=== PATIENT | male | born 1985 | race American Indian/Alaskan Native ===

== ENCOUNTER 2017-11-18 06:25 | Emergency (ER) | payer SELFPAY ==
[2017-11-18 06:37] VITALS: BP 121/76
[2017-11-18] MEDS ORDERED: NORCO 7.5/325 PO ONE (07:55)
--- NOTE | 2017-11-18 09:43 | Emergency Department Report ---
[facility] Chief Complaint: Upper Respiratory Infection Stated Complaint: EYE PAIN Time Seen by Provider: 11/18/17 07:17 Duration: 2 Days Side: Bilateral Symptoms: Yes Eye Itching (both eyes that started off on the left.), Yes Eye Redness (both eyes), Yes Purulent Drainage (woke up this morning with his eyes shut with crusting.), Yes H/O Allergic Rhinitis, No Eye Pain (0/10), No Mucous Drainage, No Blurred Vision, No Preceding URI (he said he has allergies but he does not have any new congestion or runny nose), No Contact Lens Use, No Trauma , No Fever, No Headache Other History: Patient reports that he has redness and itching to both eyes that started off in his left and now is that his right eye. Pain is 0-10. Tetanus shot is up-to-date. Denies any eye pain. He states that he thinks he' s been exposed to pinkeye from work. Denies any blurred vision or decrease in vision. Denies any runny nose or coughing. Denies any nasal congestion or sore throat. Denies any change in vision or loss of vision. He says been taking [id number] eyedrops without any relief. ED Review of Systems ROS: Stated complaint: EYE PAIN Other details as noted in HPI Comment: All other systems reviewed and negative Constitutional: denies: chills, fever Eyes: eye discharge. denies: eye pain, vision change ENT: denies: ear pain, throat pain, dental pain, hearing loss, congestion Respiratory: denies: cough, shortness of breath, wheezing Cardiovascular: denies: chest pain, palpitations Gastrointestinal: denies: abdominal pain, nausea, diarrhea Skin: denies: rash, lesions Neurological: denies: headache, weakness, paresthesias ED Past Medical Hx - Past Medical History Previous Medical History?: No - Surgical History Past Surgical History?: No - Family History Family history: no significant - Social History Smoking Status: Current Every Day Smoker Substance Use Type: None Other Social History: Lives with family - Medications Home Medications: Home Medications Medication Instructions Recorded Confirmed Last Taken Type HYDROcodone/APAP 7.5-325 [[place] 1 each PO Q8HR PRN #15 tablet 08/17/13 Unknown Rx 7.5-325 mg TAB] Penicillin Vk [Veetids TAB] 250 mg PO QID 10 Days tablet 08/17/13 Unknown Rx Gentamicin 0.3% Ophth Soln 2 drops OU Q8H 7 Days #1 bottle 11/18/17 Unknown Rx Ketotifen Fumarate [Zaditor] 5 ml OU Q8H PRN #1 bottle 11/18/17 Unknown Rx [facility] Exam - Exam General: Vital signs noted. No distress. Alert and acting appropriately. This is a 31-year-old male well-nourished well-developed in no acute distress. Eye Exam: Both Injection, Both EOMI, Both Purulent Discharge, Neither Chemosis, Neither Abnormal Pupil, Neither Eye Foreign Body, Neither Lid Foreign Body, Neither Mucous Discharge, Neither Corneal Edema, Neither Photophobia HEENT: No Nasal Congestion, No Pharyngeal Erythema Remainder of HEENT: Normal Lungs: Yes Clear Lung Sounds (CTAB), Yes Good Air Exchange, No Wheezes, No Stridor, No Cough, No Nasal Flaring, No Retractions, No Use of Accessory Muscles Exam: Cardiovascular: S1, S2. Regular rate and rhythm negative murmur. CV: No clubbing, cyanosis or edema. +2 pulses to all extremities ED Course Vital Signs 11/18/17 11/18/17 06:24 07:07 Temperature 98.2 F 98.2 F Pulse Rate 67 68 Respiratory 16 16 Rate Blood Pressure 121/76 121/76 O2 Sat by Pulse 99 99 Oximetry - Reevaluation(s) Reevaluation #1: 11/18/17 09:50 Patient stable throughout ED stay. Discussed diagnosis with him and he voiced understanding and ED Medical Decision Making - Medical Decision Making ED course: Patient with conjunctivitis in both eye. Diagnosis and treatment plan explained to patient and he voiced understanding. Tetanus vaccines up-to- date. Patient stable and discharged home to follow up with routeman and primary care physician. Diagnosis: Acute conjunctivitis, both eyes Itchy eyes Medication in emergency room: None Diagnostic and laboratory: None Prescription: Gentamicin ophthalmic eyedrops and ketoprofen ophthalmic for itchy eyes. Follow-up: Patient discharged home with family to follow up with routeman and primary care physician. Patient educated on pinkeye and also given information on pinkeye. He voiced understanding Critical care attestation.: If time is entered above; I have spent that time in minutes in the direct care of this critically ill patient, excluding procedure time. ED Disposition Clinical Impression: Itchy eyes Conjunctivitis Qualifiers: Conjunctivitis type: acute Acute conjunctivitis type: bacterial Laterality: bilateral Qualified Code(s): H10.33 - Unspecified acute conjunctivitis, bilateral Disposition: DC- TO HOME OR SELFCARE Is pt being admited?: No Does the pt Need Aspirin: No Condition: Stable Instructions: Conjunctivitis (ED) Additional Instructions: Please keep affected areas around U clean and dry. Wipe down areas with antiseptic Follow Discharge instructions on conjunctivitis Use eyedrops as instructed Prescriptions: Gentamicin 0.3% Ophth Soln 2 drops OU Q8H 7 Days #1 bottle Ketotifen Fumarate [Zaditor] 5 ml OU Q8H PRN #1 bottle PRN Reason: itching eyes Referrals: PRIMARY CAREMD [Primary Care Provider] - 11/20/17 BETH DOMÍNGUEZ MD [Staff Physician] - 11/19/17 Forms: Accompanied Note, Work/School Release Form(ED)
== END 2017-11-18 09:58 | disposition home or self-care (01) ==
LOC: ED 06:25
DX: H10.33 Unspecified acute conjunctivitis, bilateral (principal); F17.200 Nicotine dependence, unspecified, uncomplicated
CPT/HCPCS: 99282